=== PATIENT | female | born 1945 | race Caucasian/White ===

== ENCOUNTER 2022-05-04 07:50 | Inpatient (IN) | payer MEDICARE ==
[2022-05-04 08:38] LABS: Anion Gap 15 mmol/L (10-20); BUN (Urea Nitrogen) 10 mg/dL (9.8-20.1); Calc. Creatinine Clearance 0 mL/min (70-130); Calcium 9.6 mg/dL (7.8-10.44); Carbon Dioxide 24 mmol/L (23-31); Chloride 107 mmol/L (98-107); Estimated GFR 75; Glucose 115 mg/dL (83-110); Potassium 3.3 mmol/L (3.5-5.1); Sodium 143 mmol/L (136-145)
[2022-05-04 08:40] LABS: Hemoglobin 13.5 g/dL (12.0-15.5); Mean Corpuscular HGB CONC 34.8 g/dL (32.0-36.0); Mean Corpuscular Hemoglobin 31.3 pg (27.0-33.0); Platelet Count 317 10x3/uL (150-450); RBC Distribution Width 12.2 % (11.5-14.5); Red Blood Cell (RBC) Count 4.31 10x6/uL (3.90-5.03); White Blood Cell (WBC) Count 7.8 10x3/uL (3.5-10.5)
[2022-05-04 08:43] LABS: INR-International Normal Ratio 0.9; PTT 26.1 sec (22.0-33.0)
[2022-05-04] MEDS ORDERED: Phenylephrine 40 MG/NS 250 ML 250 ML ONE (09:30)
[2022-05-04] MEDS ORDERED: Lidocaine 1% (PF) 30 ML VIAL ONE (09:33)
[2022-05-04] MEDS ORDERED: PHENYLEPHRINE-NS 100 MCG/ML 10 ML SYRINGE ONE (09:34)
[2022-05-04] MEDS ORDERED: Heparin 10,000 UNITS/ 10 ML VIAL ONE ×2 (09:34→10:41)
[2022-05-04] MEDS ORDERED: Fentanyl 100 MCG/2 ML VIAL ONE (09:35)
[2022-05-04] MEDS ORDERED: Midazolam HCl 2 mg/2 ml Vial ONE (09:35)
[2022-05-04] MEDS ORDERED: Atropine Sulfate 0.4 mg/1 ml Vial ONE (09:35)
[2022-05-04] MEDS ORDERED: Protamine Sulfate 50 MG/5 ML VIAL ONE (11:19)
[2022-05-04 12:21] VITALS: BMI 23.2
[2022-05-04] MEDS ORDERED: Iopamidol 300 61% 100 ML VIAL FS ONE (15:21)
[2022-05-04] MEDS: Sodium Chloride 0.9% 1,000 ML IV SCH ×2 (15:29→21:07)
[2022-05-04] MEDS ORDERED: Acetaminophen 325 MG TAB PO PRN (17:26)
[2022-05-04] MEDS ORDERED: traZODone HCl 50 MG TAB PO SCH (21:00)
[2022-05-04] MEDS ORDERED: Rosuvastatin 20 MG TAB PO SCH (21:00)
[2022-05-05 04:36] VITALS: BP 118/60; TEMP 98.8
[2022-05-05 05:13] LABS: ALT (SGPT) 15 U/L (8-55); AST (SGOT) 14 U/L (5-34); Albumin 3.1 g/dL (3.4-4.8); Alkaline Phosphatase 62 U/L (40-110); Anion Gap 15 mmol/L (10-20); BUN (Urea Nitrogen) 12 mg/dL (9.8-20.1); Bilirubin, Total 0.2 mg/dL (0.2-1.2); Calc. Creatinine Clearance 52 mL/min (70-130); Calcium 7.9 mg/dL (7.8-10.44); Carbon Dioxide 20 mmol/L (23-31); Chloride 113 mmol/L (98-107); Estimated GFR 74; Globulin 2.1 g/dL (2.4-3.5); Glucose 106 mg/dL (83-110); Potassium 3.5 mmol/L (3.5-5.1); Protein, Total 5.2 g/dL (5.8-8.1); Sodium 144 mmol/L (136-145)
[2022-05-05 06:36] LABS: #Basophils 0.1 10x3/uL (0.0-0.2); #Eosinphils 0.2 10x3/uL (0.0-0.5); #Monocytes 0.8 10x3/uL (0.0-1.1); #Neutrophils 5.4 10x3/uL (1.5-8.4); %Basophils 0.8 % (0.0-2.0); %Eosinophils 2.6 % (0.0-6.0); %Lymphocytes 18.7 % (18.0-47.0); %Monocytes 9.7 % (0.0-10.0); %Neutrophils 67.8 % (40.0-75.0); Hemoglobin 9.7 g/dL (12.0-15.5); Mean Corpuscular HGB CONC 33.7 g/dL (32.0-36.0); Mean Corpuscular Hemoglobin 30.8 pg (27.0-33.0); Mean Corpuscular Volume 91.4 fl (81.6-98.3); Mean Platelet Volume 9.4 fl (7.4-10.4); Platelet Count 251 10x3/uL (150-450); RBC Distribution Width 12.5 % (11.5-14.5); Red Blood Cell (RBC) Count 3.15 10x6/uL (3.90-5.03); White Blood Cell (WBC) Count 7.9 10x3/uL (3.5-10.5)
[2022-05-05] MEDS ORDERED: Aspirin Chewable 81 MG TAB PO SCH ×2 (09:00)
[2022-05-05] MEDS ORDERED: Clopidogrel Bisulfate 75 MG TAB PO SCH ×2 (09:00)
[2022-05-05] MEDS ORDERED: Sertraline 100 MG TAB PO SCH (09:00)
[2022-05-05] MEDS: Amlodipine 10 MG TAB PO SCH ×2 (09:02→09:26)
[2022-05-05] MEDS: Losartan Potassium 50 MG TAB PO SCH ×2 (09:02→09:27)
[2022-05-05] MEDS: Sodium Chloride 0.9% 1,000 ML IV SCH (09:27)
== END 2022-05-05 10:30 | disposition home or self-care (01) | DRG 36 ==
LOC: CSHSDC 07:50 → CSHIMCU 12:03
PROVIDERS: ADMIT Internal Medicine Cardiovascular Disease; ATTEND Internal Medicine Cardiovascular Disease
PROC: 037L3DZ Dilation of Left Internal Carotid Artery with Intraluminal Device, Percutaneous Approach (ICD-10-PCS; principal; 2022-05-04)
PROC: B3141ZZ Fluoroscopy of Left Common Carotid Artery using Low Osmolar Contrast (ICD-10-PCS; 2022-05-04)
PROC: B3121ZZ Fluoroscopy of Left Subclavian Artery using Low Osmolar Contrast (ICD-10-PCS; 2022-05-04)
PROC: B31R1ZZ Fluoroscopy of Intracranial Arteries using Low Osmolar Contrast (ICD-10-PCS; 2022-05-04)
PROC: B41J1ZZ Fluoroscopy of Other Lower Arteries using Low Osmolar Contrast (ICD-10-PCS; 2022-05-04)
DX: I65.23 Occlusion and stenosis of bilateral carotid arteries (principal); I10 Essential (primary) hypertension; E78.5 Hyperlipidemia, unspecified; I73.9 Peripheral vascular disease, unspecified; F17.210 Nicotine dependence, cigarettes, uncomplicated
CPT/HCPCS: 36223; 36228; 36416; 37215; 71046; 80048; 80053; 85025; 85027; 85347; 85610; 85730; 93005; 93010; 99152; 99153; C1760; C1769; C1876; C1884; C1894; J0461; J1644; J2001; J2250; J2720; J3010; J7050; Q9967

== ENCOUNTER 2022-06-12 12:28 | Outpatient (CLI) | payer MEDICARE ==
[2022-06-12 13:16] LABS: Hemoglobin 12.9 g/dL (12.0-15.5); Mean Corpuscular HGB CONC 32.7 g/dL (32.0-36.0); Mean Corpuscular Hemoglobin 30.2 pg (27.0-33.0); Mean Corpuscular Volume 92.5 fl (81.6-98.3); Platelet Count 395 10x3/uL (150-450); Red Blood Cell (RBC) Count 4.27 10x6/uL (3.90-5.03); White Blood Cell (WBC) Count 8.1 10x3/uL (3.5-10.5)
[2022-06-12 13:34] LABS: INR-International Normal Ratio 0.9; PTT 26.6 sec (22.0-33.0); Prothrombin Time 10.1 sec (9.5-12.1)
[2022-06-12 13:35] LABS: Anion Gap 13 mmol/L (10-20); BUN (Urea Nitrogen) 9 mg/dL (9.8-20.1); Calc. Creatinine Clearance 0 mL/min (70-130); Calcium 9.2 mg/dL (7.8-10.44); Carbon Dioxide 25 mmol/L (23-31); Chloride 107 mmol/L (98-107); Estimated GFR 78; Glucose 100 mg/dL (83-110); Potassium 3.8 mmol/L (3.5-5.1); Sodium 141 mmol/L (136-145)
== END 2022-06-12 12:29 | disposition home or self-care (01) ==
LOC: CSHLAB 12:28
PROVIDERS: ATTEND Internal Medicine Cardiovascular Disease
DX: Z01.818 Encounter for other preprocedural examination (principal); I65.21 Occlusion and stenosis of right carotid artery
CPT/HCPCS: 80048; 85027; 85610; 85730; 93005; 93010

== ENCOUNTER 2022-06-19 06:51 | Day surgery (SDC) | payer MEDICARE ==
[2022-06-19] MEDS ORDERED: Lidocaine 1% (PF) 30 ML VIAL ONE (07:49)
[2022-06-19] MEDS ORDERED: Heparin 10,000 UNITS/ 10 ML VIAL ONE (07:49)
[2022-06-19] MEDS ORDERED: Phenylephrine 40 MG/NS 250 ML 250 ML ONE (07:55)
[2022-06-19] MEDS ORDERED: PHENYLEPHRINE-NS 100 MCG/ML 10 ML SYRINGE ONE (07:56)
[2022-06-19] MEDS ORDERED: FLU VACC QS2022-23(65YR UP)/PF 240 MCG/0.7 ML SYRINGE IM ONE (08:00)
[2022-06-19] MEDS ORDERED: Atropine Sulfate 0.4 mg/1 ml Vial ONE (08:04)
[2022-06-19] MEDS ORDERED: Fentanyl 100 MCG/2 ML VIAL ONE (08:59)
[2022-06-19] MEDS ORDERED: Midazolam HCl 2 mg/2 ml Vial ONE (08:59)
[2022-06-19] MEDS ORDERED: Protamine Sulfate 50 MG/5 ML VIAL ONE (10:08)
[2022-06-19 11:34] VITALS: BMI 23.2
[2022-06-19] MEDS: Sodium Chloride 0.9% 1,000 ML IV SCH ×2 (13:33→22:09)
[2022-06-19] MEDS ORDERED: Iopamidol 300 61% 100 ML VIAL FS ONE (15:52)
[2022-06-19] MEDS: Polyethylene Glycol 3350 17 GM Packet PO SCH ×2 (20:14→20:21)
[2022-06-19] MEDS ORDERED: Rosuvastatin 20 MG TAB PO SCH (21:00)
[2022-06-19] MEDS ORDERED: traZODone HCl 50 MG TAB PO SCH (21:00)
[2022-06-19] MEDS ORDERED: Loratadine 10 MG TAB PO SCH (21:00)
[2022-06-20 03:33] LABS: #Eosinphils 0.2 10x3/uL (0.0-0.5); #Monocytes 0.8 10x3/uL (0.0-1.1); #Neutrophils 5.9 10x3/uL (1.5-8.4); %Basophils 0.5 % (0.0-2.0); %Eosinophils 2.4 % (0.0-6.0); %Monocytes 9.2 % (0.0-10.0); %Neutrophils 67.7 % (40.0-75.0); Hemoglobin 9.7 g/dL (12.0-15.5); Mean Corpuscular HGB CONC 32.6 g/dL (32.0-36.0); Mean Corpuscular Hemoglobin 30.1 pg (27.0-33.0); Mean Corpuscular Volume 92.5 fl (81.6-98.3); Mean Platelet Volume 9.6 fl (7.4-10.4); Platelet Count 299 10x3/uL (150-450); RBC Distribution Width 12.7 % (11.5-14.5); Red Blood Cell (RBC) Count 3.22 10x6/uL (3.90-5.03); White Blood Cell (WBC) Count 8.8 10x3/uL (3.5-10.5)
[2022-06-20 03:55] LABS: ALT (SGPT) 17 U/L (8-55); AST (SGOT) 14 U/L (5-34); Albumin 3.4 g/dL (3.4-4.8); Alkaline Phosphatase 53 U/L (40-110); Anion Gap 12 mmol/L (10-20); BUN (Urea Nitrogen) 9 mg/dL (9.8-20.1); Bilirubin, Total 0.3 mg/dL (0.2-1.2); Calc. Creatinine Clearance 56 mL/min (70-130); Carbon Dioxide 21 mmol/L (23-31); Chloride 113 mmol/L (98-107); Estimated GFR 81; Globulin 2.2 g/dL (2.4-3.5); Glucose 98 mg/dL (83-110); Potassium 3.7 mmol/L (3.5-5.1); Protein, Total 5.6 g/dL (5.8-8.1); Sodium 142 mmol/L (136-145)
[2022-06-20 04:39] VITALS: TEMP 97.7
[2022-06-20] MEDS ORDERED: Amlodipine 10 MG TAB PO SCH (09:00)
[2022-06-20] MEDS ORDERED: Sertraline 25 MG TAB PO SCH (09:00)
[2022-06-20] MEDS ORDERED: Losartan Potassium 50 MG TAB PO SCH (09:00)
[2022-06-20] MEDS ORDERED: Clopidogrel Bisulfate 75 MG TAB PO SCH ×2 (09:00)
[2022-06-20] MEDS ORDERED: Aspirin Chewable 81 MG TAB PO SCH ×2 (09:00)
[2022-06-20] MEDS: Sodium Chloride 0.9% 1,000 ML IV SCH (09:30)
[2022-06-20 09:31] VITALS: BP 152/80
[2022-06-22] MEDS ORDERED: FLU VACC QS2022-23(65YR UP)/PF 240 MCG/0.7 ML SYRINGE IM ONE (11:45)
== END 2022-06-20 13:20 | disposition home or self-care (01) ==
LOC: CSHSDC 06:51 → CSHICU 11:31 → UNDOADMIN 11:31 → UNDODISIN 06-20 13:20 → CSHSDC 06-20 13:20
PROVIDERS: ATTEND Internal Medicine Cardiovascular Disease
DX: I65.23 Occlusion and stenosis of bilateral carotid arteries (principal); I73.9 Peripheral vascular disease, unspecified; I10 Essential (primary) hypertension; F41.9 Anxiety disorder, unspecified; E78.5 Hyperlipidemia, unspecified; Z95.828 Presence of other vascular implants and grafts; Z88.2 Allergy status to sulfonamides; Z88.5 Allergy status to narcotic agent; Z88.8 Allergy status to other drugs, medicaments and biological substances; Z91.018 Allergy to other foods; Z79.82 Long term (current) use of aspirin; Z79.02 Long term (current) use of antithrombotics/antiplatelets; Z79.899 Other long term (current) drug therapy; F17.210 Nicotine dependence, cigarettes, uncomplicated
CPT/HCPCS: 36223; 36227; 37215; 80053; 85025; 85347; 86850; 86900; 86901; 93005 ×2; 94760 ×2; 94762; C1760 ×2; C1769 ×2; C1876; C1884; C1894; 36415; 93010; 99152; 99153; J0461; J1644; J2001; J2250; J2720; J3010; J7050; Q9967